=== PATIENT | male | born 1990 ===

== ENCOUNTER → 2020-12-23 | Outpatient (REF) | payer OTHER ==
[2020-12-23 15:26] LABS: SEMEN APPEARANCE OPAQUE (OPAQUE); SEMEN VOLUME 0.9 ml (2.0-5.0)
[2020-12-23 15:27] LABS: SEMEN VISCOSITY VISCOUS (LIQUID); SPERM CONCENTRATION 108.6 M/ml (>=15.0); WBC CONCENTRATION <=1 M/ml (<=1 M/ml)
== END ==
LOC: M LAB REF 15:21
PROVIDERS: ATTEND Obstetrics & Gynecology
DX: Z31.41 Encounter for fertility testing (principal)